=== PATIENT | male | born 1955 | race Caucasian/White ===

== ENCOUNTER 2016-11-23 08:07 | Day surgery (SDC) | payer OTHER ==
[~2016-11-23] VITALS: Ht 177.8 cm; Wt 104.5 kg
[~2016-11-23 08:07] MED LIST: CEPH500C PO; HYDR25TA4 PO; KEN25CR EXT; Sodium Chloride LOK Flush 10 mL Syringe IV PRN; fentaNYL-PF 50 mCg/mL 2 mL Inj IVPUSH PRN
[2016-11-23 09:42] VITALS: BP 152/93; PULSE 73; RESP 14; O2SAT 96
[2016-11-23] MEDS: 0.9% Sodium Chloride 1,000 ML IV SCH ×2 (10:21→10:32)
[2016-11-23 10:37] VITALS: BP 117/72; PULSE 64; RESP 16; O2SAT 93
[2016-11-23 10:47] VITALS: BP 110/69; PULSE 63; RESP 14; O2SAT 93
[2016-11-23 10:57] VITALS: BP 110/69; PULSE 62; RESP 16; O2SAT 95
--- NOTE | 2016-11-23 12:20 | ENDO ---
[address] [address] ENDOSCOPY PROCEDURE PATIENT: JUN ARMSTRONG : 1955 MR#: [id number] ADMIT: 11/23/2016 JOB ID: [id number] PROCEDURE: Colonoscopy. INDICATION: Screening. ANESTHESIA: Patient's ASA classification is two. Mallampati score is two. MEDICATIONS: 1. Versed 5 mg. 2. Fentanyl 100 mcg. INSTRUMENT USED: Was a PCF H 180 AL. PREPARATION QUALITY: Good. PROCEDURE DETAILS: After informed consent was obtained, the patient was brought to the GI suite, where he was placed on oxygen via nasal cannula and monitored with continuous pulse oximeter, telemetry, and blood pressure monitoring. A time-out was performed, then he was placed in the left lateral decubitus position and medications were administered for sedation. Digital rectal exam with palpation of the prostate was performed which was unremarkable. The colonoscope was then inserted into the rectum and advanced under direct visualization to the cecum, which was identified by the presence of the ileocecal valve and appendiceal orifice. Once the cecum was reached, the colonoscope was withdrawn back into the rectum as the mucosa and lumen were examined. In the rectum, retroflexion was performed. Following retroflexion, the remaining air in the rectum was suctioned and the procedure was completed. FINDINGS: 1. In the transverse colon, there was an approximately 5 mm sessile polyp that was removed with a cold snare. 2. Scattered diverticula were seen throughout the sigmoid colon. IMPRESSION: 1. Transverse colon polyp. 2. Scattered sigmoid diverticula. RECOMMENDATIONS: 1. Fiber rich diet. 2. Repeat colonoscopy pending polyp pathology results. COMPLICATIONS: None. ESTIMATED BLOOD LOSS: Less than 5 mL.
--- NOTE | 2016-11-26 13:45 | PATH ---
SURGICAL PATHOLOGY Attending Physician:Ally Guzman CASE STATUS: Signed Out PATIENT NAME: Barry Schulte PID: [id number] : 1955 DATE COLLECTED:11/23/2016 16:36 SPECIMEN: Colon, Biopsy CLINICAL HISTORY: TRANSVERSE COLON POLYP FINAL DIAGNOSIS: TRANSVERSE COLON POLYP: TUBULAR ADENOMA. ICD10 CODE D12.3 GROSS DESCRIPTION: Received in formalin, labeled with the patient' s name and "transverse colon polyp", is one fragment of muñoz, soft tissue measuring 0.2 x 0.2 x 0.1 cm. The fragment is totally submitted in cassette 1A. ([id number]) MICRO DESCRIPTION: See diagnosis. ICD-9 CODES: CPT CODES: 1: 07862 Electronically Signed Out Scott Ortiz MD [facility] [address], [place] [address] Technical component performed at [facility], [facility] [address], [address]
== END 2016-11-23 23:59 | disposition home or self-care (01) ==
LOC: END 08:07
PROVIDERS: ATTEND Internal Medicine Gastroenterology
DX: Z12.11 Encounter for screening for malignant neoplasm of colon (principal); D12.3 Benign neoplasm of transverse colon; K57.30 Diverticulosis of large intestine without perforation or abscess without bleeding; Z86.010 Personal history of colon polyps; I10 Essential (primary) hypertension; E55.9 Vitamin D deficiency, unspecified
CPT/HCPCS: 45385; G0500; J2250; J3010; J7030